=== PATIENT | male | born 1950 | race Caucasian/White ===

== ENCOUNTER 2017-12-18 11:57 | Inpatient (IN) | payer OTHER ==
[2017-12-18 12:29] LABS: WHITE BLOOD COUNT 13.3 10^3/ul (4.8-10.8)
[2017-12-18 12:29] LABS: ADD MAN DIFF? NO; BASOPHILS % 0.2 % (0.0-2.0); EOSINOPHILS # 0.2 10^3/ul (0.0-0.5); EOSINOPHILS % 1.8 % (0.0-7.0); HEMATOCRIT 45.8 % (42.0-52.0); HEMOGLOBIN 15.5 g/dl (14.0-18.0); LYMPHOCYTES # 2.4 10^3/ul (0.8-2.9); LYMPHOCYTES % 18.2 % (15.0-51.0); MEAN CORPUSCULAR HEMOGLOBIN 29.8 pg (29.0-33.0); MEAN CORPUSCULAR HGB CONC 33.8 g/dl (32.0-37.0); MEAN CORPUSCULAR VOLUME 88.1 fl (82.0-101.0); MEAN PLATELET VOLUME 10.7 fl (7.4-10.4); MONOCYTE # 0.8 10^3/ul (0.3-0.9); NEUTROPHIL # 9.7 10^3/ul (1.6-7.5); NEUTROPHILS % 73.3 % (39.0-77.0); PLATELET COUNT 259 10^3/UL (140-415); RED CELL DISTRIBUTION WIDTH 13.8 % (11.5-14.5)
[2017-12-18 12:52] LABS: ANION GAP 15 (8-16); BLOOD UREA NITROGEN 19 mg/dl (7-20); CALCIUM 8.9 mg/dl (8.4-10.2); CARBON DIOXIDE 29 mmol/L (21-31); CHLORIDE 108 mmol/L (97-110); CREATININE 0.88 mg/dl (0.61-1.24); GLUCOSE 132 mg/dl (70-220); POTASSIUM 3.5 mmol/L (3.5-5.1); SODIUM 148 mmol/L (135-144)
[2017-12-18 13:00] LABS: ADD UMIC NO; UR ASCORBIC ACID NEGATIVE (NEGATIVE); UR BILIRUBIN (Dip) NEGATIVE (NEGATIVE); UR BLOOD (Dip) NEGATIVE (NEGATIVE); UR CLARITY CLEAR (CLEAR); UR COLOR STRAW (YELLOW); UR GLUCOSE (Dip) 1+ mg/dL (NEGATIVE); UR KETONES (Dip) NEGATIVE (NEGATIVE); UR LEUKOCYTE ESTERASE (Dip) NEGATIVE Leu/ul (NEGATIVE); UR NITRITE (Dip) NEGATIVE (NEGATIVE); UR SPECIFIC GRAVITY (Dip) 1.015 (1.003-1.030); UR TOTAL PROTEIN (Dip) NEGATIVE (NEGATIVE); UR UROBILINOGEN (Dip) NEGATIVE (NEGATIVE)
[2017-12-18] MEDS: DEXTROSE 5%-0.45% NACL 1,000 ML IV (14:47)
[2017-12-18] MEDS ORDERED: MAGNESIUM HYDROXIDE 30ML CUP PO (17:30)
[2017-12-18] MEDS ORDERED: hydrALAzine 20 MG INJ IV (17:30)
[2017-12-18] MEDS ORDERED: LORAZEPAM 2 MG INJ IV (17:30)
[2017-12-18] MEDS ORDERED: ACETAMINOPHEN 325 MG TAB PO (17:30)
[2017-12-18] MEDS ORDERED: DOCUSATE SODIUM 100 MG CAP PO (17:30)
[2017-12-18] MEDS ORDERED: NA PHOSPHATE/BIPHOS 133 ML ENEMA PR (17:30)
[2017-12-18] MEDS ORDERED: ONDANSETRON 4 MG INJ IV (17:30)
[2017-12-18] MEDS ORDERED: NITROGLYCERIN (SL) 0.4 MG TAB SL (17:30)
[2017-12-18] MEDS ORDERED: HYDROCODONE/APAP (5/325) TAB PO (17:30)
[2017-12-18] MEDS ORDERED: morphine 2 MG INJ IV (17:30)
[2017-12-18] MEDS ORDERED: NACL 0.9% 3 ML SYG IV (17:30)
[2017-12-18] MEDS ORDERED: ALBUTEROL/IPRATROPIUM (NEB) 3 ML AMP HHN (17:30)
[2017-12-18] MEDS ORDERED: GLUCAGON 1 MG INJ IM (18:00)
[2017-12-18] MEDS ORDERED: GLUCOSE GEL 15 GRAM TUBE BUCCAL (18:00)
[2017-12-18] MEDS ORDERED: DEXTROSE 50% 50 ML SYRINGE IV ×2 (18:00)
[2017-12-18] MEDS ORDERED: GLUCOSE GEL 15 GRAM TUBE PO ×2 (18:00)
[2017-12-18 18:02] LABS: FREE T4 (FREE THYROXINE) 0.99 ng/dl (0.78-2.44)
[2017-12-18] MEDS: SOD CHLORIDE 0.45% 1,000 ML IV (20:00)
[2017-12-18] MEDS: INSULIN ASPART [NOVOLOG] 3 ML PEN SC ×2 (20:20→20:24)
[2017-12-18] MEDS: ATORVASTATIN 40 MG TAB PO (21:21)
[2017-12-18] MEDS: HEPARIN 5,000 UNIT/0.5 ML VIAL SC (21:29)
[2017-12-19] MEDS: ACCU-CHEK XX ×2 (02:00→20:51)
[2017-12-19] MEDS: PANTOPRAZOLE 40 MG INJ IV (06:03)
[2017-12-19] MEDS: SOD CHLORIDE 0.45% 1,000 ML IV ×2 (06:03→12:06)
[2017-12-19] MEDS: INSULIN ASPART [NOVOLOG] 3 ML PEN SC ×4 (07:53→20:51)
[2017-12-19 07:56] LABS: ADD MAN DIFF? NO
[2017-12-19 08:00] LABS: BASOPHILS % 0.2 % (0.0-2.0); EOSINOPHILS # 0.4 10^3/ul (0.0-0.5); EOSINOPHILS % 4.2 % (0.0-7.0); HEMATOCRIT 43.4 % (42.0-52.0); HEMOGLOBIN 14.9 g/dl (14.0-18.0); LYMPHOCYTES % 36.8 % (15.0-51.0); MEAN CORPUSCULAR HEMOGLOBIN 29.9 pg (29.0-33.0); MEAN CORPUSCULAR HGB CONC 34.3 g/dl (32.0-37.0); MEAN CORPUSCULAR VOLUME 87.1 fl (82.0-101.0); MEAN PLATELET VOLUME 10.9 fl (7.4-10.4); MONOCYTE # 0.6 10^3/ul (0.3-0.9); MONOCYTES % 6.7 % (0.0-11.0); NEUTROPHIL # 4.3 10^3/ul (1.6-7.5); NEUTROPHILS % 51.6 % (39.0-77.0); PLATELET COUNT 246 10^3/UL (140-415); RED BLOOD COUNT 4.98 10^6/ul (4.70-6.10); RED CELL DISTRIBUTION WIDTH 13.9 % (11.5-14.5)
[2017-12-19 08:00] LABS: WHITE BLOOD COUNT 8.3 10^3/ul (4.8-10.8)
[2017-12-19 08:20] LABS: ANION GAP 15 (8-16); BLOOD UREA NITROGEN 16 mg/dl (7-20); CALCIUM 8.9 mg/dl (8.4-10.2); CARBON DIOXIDE 23 mmol/L (21-31); CHLORIDE 110 mmol/L (97-110); CREATININE 0.91 mg/dl (0.61-1.24); GLUCOSE 128 mg/dl (70-220); MAGNESIUM 1.9 mg/dl (1.7-2.5); PHOSPHORUS 3.7 mg/dl (2.5-4.9); POTASSIUM 4.3 mmol/L (3.5-5.1); SODIUM 144 mmol/L (135-144)
[2017-12-19 08:22] LABS: CHOLESTEROL 165 mg/dl (100-200)
[2017-12-19 08:22] LABS: CHOL/HDL RATIO 4.5 RATIO; HDL CHOLESTEROL 36 mg/dl (30-78); LDL CHOLESTEROL,CALCULATED 98 mg/dl; TRIGLYCERIDES 153 mg/dl (0-149)
[2017-12-19] MEDS: HEPARIN 5,000 UNIT/0.5 ML VIAL SC ×2 (09:08→20:57)
[2017-12-19 09:20] LABS: HEMOGLOBIN A1C 6.2 % (0-5.9)
[2017-12-19] MEDS: ATORVASTATIN 40 MG TAB PO (20:52)
[2017-12-20] MEDS: SOD CHLORIDE 0.45% 1,000 ML IV ×2 (04:21→09:27)
[2017-12-20] MEDS: PANTOPRAZOLE 40 MG INJ IV (06:37)
[2017-12-20] MEDS: INSULIN ASPART [NOVOLOG] 3 ML PEN SC ×4 (08:04→21:00)
[2017-12-20] MEDS: HEPARIN 5,000 UNIT/0.5 ML VIAL SC ×2 (08:40→21:47)
[2017-12-20 09:03] LABS: ADD MAN DIFF? NO
[2017-12-20 09:09] LABS: WHITE BLOOD COUNT 7.4 10^3/ul (4.8-10.8)
[2017-12-20 09:09] LABS: BASOPHILS % 0.1 % (0.0-2.0); EOSINOPHILS # 0.3 10^3/ul (0.0-0.5); EOSINOPHILS % 4.6 % (0.0-7.0); HEMOGLOBIN 15.1 g/dl (14.0-18.0); LYMPHOCYTES # 2.3 10^3/ul (0.8-2.9); LYMPHOCYTES % 31.7 % (15.0-51.0); MEAN CORPUSCULAR HEMOGLOBIN 29.6 pg (29.0-33.0); MEAN CORPUSCULAR HGB CONC 34.3 g/dl (32.0-37.0); MEAN CORPUSCULAR VOLUME 86.3 fl (82.0-101.0); MEAN PLATELET VOLUME 11.4 fl (7.4-10.4); MONOCYTE # 0.5 10^3/ul (0.3-0.9); MONOCYTES % 6.2 % (0.0-11.0); NEUTROPHIL # 4.2 10^3/ul (1.6-7.5); NEUTROPHILS % 56.9 % (39.0-77.0); PLATELET COUNT 252 10^3/UL (140-415); RED CELL DISTRIBUTION WIDTH 13.4 % (11.5-14.5)
[2017-12-20 09:31] LABS: ANION GAP 15 (8-16); BLOOD UREA NITROGEN 19 mg/dl (7-20); CALCIUM 8.7 mg/dl (8.4-10.2); CARBON DIOXIDE 24 mmol/L (21-31); CHLORIDE 107 mmol/L (97-110); CREATININE 0.92 mg/dl (0.61-1.24); GLUCOSE 134 mg/dl (70-220); POTASSIUM 4.2 mmol/L (3.5-5.1); SODIUM 142 mmol/L (135-144)
[2017-12-20] MEDS: LINAGLIPTIN 5 MG TABLET PO (13:29)
[2017-12-20] MEDS: metFORMIN 500 MG TAB PO ×2 (13:29→17:37)
[2017-12-20] MEDS: ATORVASTATIN 40 MG TAB PO (21:41)
[2017-12-20] MEDS: ACCU-CHEK XX (21:47)
[2017-12-21 06:07] LABS: ADD MAN DIFF? NO
[2017-12-21 06:14] LABS: WHITE BLOOD COUNT 9.4 10^3/ul (4.8-10.8)
[2017-12-21 06:14] LABS: BASOPHILS % 0.3 % (0.0-2.0); EOSINOPHILS # 0.3 10^3/ul (0.0-0.5); EOSINOPHILS % 3.3 % (0.0-7.0); HEMATOCRIT 46.9 % (42.0-52.0); HEMOGLOBIN 16.4 g/dl (14.0-18.0); LYMPHOCYTES # 2.8 10^3/ul (0.8-2.9); LYMPHOCYTES % 29.9 % (15.0-51.0); MEAN CORPUSCULAR VOLUME 85.9 fl (82.0-101.0); MEAN PLATELET VOLUME 11.1 fl (7.4-10.4); MONOCYTE # 0.6 10^3/ul (0.3-0.9); MONOCYTES % 6.6 % (0.0-11.0); NEUTROPHIL # 5.6 10^3/ul (1.6-7.5); NEUTROPHILS % 59.4 % (39.0-77.0); PLATELET COUNT 267 10^3/UL (140-415); RED BLOOD COUNT 5.46 10^6/ul (4.70-6.10); RED CELL DISTRIBUTION WIDTH 13.3 % (11.5-14.5)
[2017-12-21 06:51] LABS: BLOOD UREA NITROGEN 23 mg/dl (7-20); CARBON DIOXIDE 21 mmol/L (21-31); CHLORIDE 107 mmol/L (97-110); CREATININE 1.03 mg/dl (0.61-1.24); GLUCOSE 138 mg/dl (70-220); SODIUM 142 mmol/L (135-144)
[2017-12-21 07:24] LABS: ANION GAP 18 (8-16); POTASSIUM 4.3 mmol/L (3.5-5.1)
[2017-12-21] MEDS: INSULIN ASPART [NOVOLOG] 3 ML PEN SC ×2 (07:55→12:17)
[2017-12-21] MEDS ORDERED: INSULIN GLARGINE [LANtus] 3 ML PEN SC (08:00)
[2017-12-21] MEDS: metFORMIN 500 MG TAB PO (08:38)
[2017-12-21] MEDS: LINAGLIPTIN 5 MG TABLET PO (08:38)
[2017-12-21] MEDS: HEPARIN 5,000 UNIT/0.5 ML VIAL SC (08:42)
== END 2017-12-21 16:30 | disposition home or self-care (01) | DRG 917 ==
LOC: E/R 11:57 → TEL 15:29
PROVIDERS: Hospitalist
DX: T38.3X1A Poisoning by insulin and oral hypoglycemic [antidiabetic] drugs, accidental (unintentional), initial encounter (principal); G93.41 Metabolic encephalopathy; E11.649 Type 2 diabetes mellitus with hypoglycemia without coma; Z91.14 Patient's other noncompliance with medication regimen; Z79.4 Long term (current) use of insulin; Y92.019 Unspecified place in single-family (private) house as the place of occurrence of the external cause
CPT/HCPCS: 36415; 80048; 80061; 81003; 82962; 83036; 83735; 84100; 84439; 84443; 85025; 93005; 99291-25